=== PATIENT | female | born 1955 | race Caucasian/White ===

== ENCOUNTER 2021-04-21 14:00 | Outpatient (CLI) | payer OTHER, SELFPAY ==
--- NOTE | 2021-04-28 12:37 | WPDHOLTEREM ---
Holter/Event Monitor Holter/Event Monitor Date of procedure: 04/21/21 Holter/Event Procedure: 48 Hr Holter Monitor Indications: Palpitations Conclusion: 1. 48 hour holter monitor on 04/21/21. 2. Underlying rhythm is sinus rhythm with sinus arrhythmia. HR range 46-121 bpm; average HR 68 bpm. 3. There are 10 premature supraventricular complexes. No supraventricular tachycardia. 4. There are 12 premature ventricular complexes. No ventricular tachycardia. 5. No sinoatrial or atrioventricular blocks. There is 1 pause greater than 2 seconds at 2.4 seconds at 00:08. 6. Patient reports symptoms of heart thump, louder heart beats which demonstrate sinus rhythm, HR range 51-89 bpm.
== END 2021-04-21 14:01 | disposition home or self-care (01) ==
LOC: ANHCARD 14:02
PROVIDERS: PCP Family Medicine; Visit Provider Family Medicine
DX: R00.2 Palpitations (principal)
CPT/HCPCS: 93225; 93226

== ENCOUNTER 2024-04-23 10:42 | Outpatient (CLI) | payer MEDICARE, SELFPAY ==
--- NOTE | ~2024-04-23 | MMUS_ITS ---
EXAMINATION: MM diagnostic satni RT w pretty, US breast RT limited HISTORY: Palpable right breast mass TECHNIQUE: Additional 3-D tomosynthesis images of the breasts were performed and synthetic 2-D images were generated. CAD analysis was submitted and interpreted. High resolution Limited right breast ult rasound was performed. COMPARISON: 07/03/2014 BREAST PARENCHYMAL COMPOSITION: Not dense: There are scattered areas of fibroglandular density. FINDINGS: MAMMOGRAPHIC FINDINGS: There is a new mass in the lower inner quadrant of the right breast, posterior third. This mass has s ome spiculated margins measuring approximately 3.4 cm greatest dimension by mammography. There is no evidence for interval change or malignancy in the left breast. ULTRASOUND: Limited right breast ultrasound: At 2-3 o'clock, 6 cm from the nipple there is an irregular shaped hy poechoic mass which is antiparallel configuration, internal vascularity and mixed posterior attenuati on. This mass measures 2.4 x 2.1 x 1.9 cm. This corresponds to the mammographic abnormality. IMPRESSION: 1. Abnormal right breast mass located at 2-3 o'clock, 6 cm from the nipple measuring up to 2.4 cm max imum dimension. 2. Ultrasound-guided right breast biopsy recommended. BI-RADS category 5: Highly suspicious abnormality. Reviewed, dictated and finalized at location B. SE COLLECTOR SUPERVISOR IMPRESSION: 1. Abnormal right breast mass located at 2-3 o'clock, 6 cm from the nipple bertrand uring up to 2.4 cm maximum dimension. 2. Ultrasound-guided right breast biopsy recommended. BI-RADS category 5: Highly suspicious abnormality.
== END 2024-04-23 10:43 | disposition home or self-care (01) ==
DX: Z12.31 Encounter for screening mammogram for malignant neoplasm of breast (principal); N63.13 Unspecified lump in the right breast, lower outer quadrant; R92.8 Other abnormal and inconclusive findings on diagnostic imaging of breast
CPT/HCPCS: 76642; 77061; 77065; G0279

== ENCOUNTER 2024-05-09 08:43 | Outpatient (CLI) | payer MEDICARE, SELFPAY ==
--- NOTE | ~2024-05-09 | MMUS_ITS ---
EXAMINATION: 1. US breast biopsy RT w image 2. MM post biopsy diagnostic RT DATE: 05/09/2024 10:22 INDICATION: Right breast mass at 2-3 o'clock, 6 cm from the nipple. TECHNIQUE: The procedure including the risks, benefits, and alternatives was discussed with the patie nt. Risks discussed included bleeding and infection. The patient understood the risks and agreed to p roceed. The skin of the right breast was prepped and draped in usual sterile fashion. Anesthetic was administered with 1% lidocaine at the skin and 1% lidocaine with epinephrine in the deeper tissue. A 10-gauge vacuum-assisted core biopsy needle was then used to obtain 4 core biopsy specimens under c ontinuous sonographic guidance. A Mammotome HydroMARK butterfly marker was placed under sonographic g uidance The entry site was cleaned and dressed. There were no immediate complications. A two-view mammogram was obtained to document marker placement. FINDINGS: Ultrasound images demonstrate the needle in a 2.3 cm irregular antiparallel hypoechoic mass at 2-3 o'clock in the right breast. Breast composition: There are scattered areas of fibroglandular density. Mammogram: There is a mass in the inner right breast with marker within the mass. IMPRESSION: 1. Successful ultrasound-guided vacuum-assisted biopsy of a 2.3 cm mass in the upper inner right justus st with post procedure mammogram for marker placement. Reviewed, dictated and finalized at location A. K CLEANER IMPRESSION: 1. Successful ultrasound-guided vacuum-assisted biopsy of a 2.3 cm mass in the upper inner right breast with post procedure mammogram for marker placement.
== END 2024-05-09 08:44 | disposition home or self-care (01) ==
DX: R92.8 Other abnormal and inconclusive findings on diagnostic imaging of breast (principal); C50.211 Malignant neoplasm of upper-inner quadrant of right female breast
CPT/HCPCS: 19083; 77065; 88305; 88360; A4648